=== PATIENT | male | born 1960 | race Caucasian/White ===

== ENCOUNTER 2018-01-30 06:26 | Day surgery (SDC) | payer OTHER, SELFPAY ==
[2018-01-30] VITALS (12 sets, daily range): BP systolic 108–149; BP diastolic 66–90; PULSE 73–93; RESP 12–28; TEMP 35.7–37.2; O2SAT 94–99; BMI 27.2
--- NOTE | 2018-01-30 07:29 | PM.PREOP ---
Pre-operative Note Interval Note Pre-op Check: History & Physical Reviewed by Physician and Exam Performed
--- NOTE | 2018-01-30 07:29 | PM.OP.1 ---
Operative Date/Time/Diagnoses - Date of procedure: 01/30/18 Time of procedure: 09:29 Pre-op diagnosis: Lumbar stenosis with radiculopathy Post-op diagnosis: same Procedure & Clinicians Procedure: L3-4 laminectomy L5-S1 laminectomy Use of microscope Placement of epidural catheter Same procedure as scheduled: Yes Indications: [age] year old male with intractable pain from stenosis. They had failed conservative management and requested operative intervention. Risks and benefits of surgery were discussed and appropriate consents were obtained. Surgeon: Denis Bynum Railway Shunter: Kenyatta Link Anesthesia Type: General Operative Notes Findings: none Closure Type: primary Specimen(s): none sent Estimated Blood Loss (mL): 20 Procedure in detail: Patient was brought to the operating room and intubated on the table. They were rolled over on the well-padded prone position on the Bob table. A time-out was performed. Preoperative antibiotics were given. The back was prepped and draped in standard sterile fashion. Using fluoroscopy for localization, a 7 cm incision was made in the midline. We used Bovie to dissect through the lumbodorsal fascia and then subperiosteally dissect the paraspinal muscles off the right side. A marker was placed and x-ray was taken to confirm positioning. We then brought in the microscope. A right-sided laminectomy was performed at L3-4 and L5-S1, skipping over the L4-5 level. We carefully depressed the dura and reached across the midline to decompress the opposite side. The neural foramen were cleared out, extensively along the right-sided L5-S1. At the end, we could reach with the ball probe cephalad and caudally across the midline and to the foramen and everything was opened. The wound was irrigated. An epidural catheter was prepared with 8 mL of 0.25% Marcaine and 100 mcg of fentanyl. The dura was carefully depressed and the catheter was advanced 6 cm cephalad underneath remaining lamina without resistance. The fascia was then closed in layers. The epidural catheter was injected without complications. Vancomycin powder was placed in the wound. The superficial and the skin were closed. Sterile dressing was placed. Patient was rolled over extubated brought to recovery room with no complications. Condition: stable Disposition: PACU Plan for aftercare: Overnight admission. Probable discharge tomorrow
--- NOTE | 2018-01-30 07:33 | P.OP_ITS ---
Operative Date/Time/Diagnoses - Date of procedure: 01/30/18 Time of procedure: 09:29 Pre-op diagnosis: Lumbar stenosis with radiculopathy Post-op diagnosis: same Procedure & Clinicians Procedure: L3-4 laminectomy L5-S1 laminectomy Use of microscope Placement of epidural catheter Same procedure as scheduled: Yes Indications: [age] year old male with intractable pain from stenosis. They had failed conservative management and requested operative intervention. Risks and benefits of surgery were discussed and appropriate consents were obtained. Surgeon: Denis Bynum Network Security Administrator: Kenyatta Link Anesthesia Type: General Operative Notes Findings: none Closure Type: primary Specimen(s): none sent Estimated Blood Loss (mL): 20 Procedure in detail: Patient was brought to the operating room and intubated on the table. They were rolled over on the well-padded prone position on the Bob table. A time-out was performed. Preoperative antibiotics were given. The back was prepped and draped in standard sterile fashion. Using fluoroscopy for localization, a 7 cm incision was made in the midline. We used Bovie to dissect through the lumbodorsal fascia and then subperiosteally dissect the paraspinal muscles off the right side. A marker was placed and x- ray was taken to confirm positioning. We then brought in the microscope. A right-sided laminectomy was performed at L3 -4 and L5-S1, skipping over the L4-5 level. We carefully depressed the dura and reached across the midline to decompress the opposite side. The neural foramen were cleared out, extensively along the right-sided L5-S1. At the end, we could reach with the ball probe cephalad and caudally across the midline and to the foramen and everything was opened. The wound was irrigated. An epidural catheter was prepared with 8 mL of 0.25% Marcaine and 100 mcg of fentanyl. The dura was carefully depressed and the catheter was advanced 6 cm cephalad underneath remaining lamina without resistance. The fascia was then closed in layers. The epidural catheter was injected without complications. Vancomycin powder was placed in the wound. The superficial and the skin were closed. Sterile dressing was placed. Patient was rolled over extubated brought to recovery room with no complications. Condition: stable Disposition: PACU Plan for aftercare: Overnight admission. Probable discharge tomorrow
[2018-01-30] MEDS: LACTATED RINGERS 1,000 ML 42 ML IV (07:45)
[2018-01-30] MEDS: CEFAZOLIN 2 GM/100 ML FROZ.PIGGY IV ×2 (07:48→16:00)
[2018-01-30] MEDS: THROMBIN (BOVINE) 5,000 UNIT VIAL 5000 UNIT TOP (08:18)
[2018-01-30] MEDS: VANCOMYCIN 1,000 MG VIAL 1000 MG TOP (08:19)
[2018-01-30] MEDS: BUPIVACAINE 0.25% (PF) 8 ML, fentaNYL 100 MCG INJ (08:20)
[2018-01-30] MEDS: SODIUM CHLORIDE 0.9% 1,000 ML, GENTAMICIN 80 MG IRR (08:21)
--- NOTE | 2018-01-30 08:28 | SUR.OPER ---
Prone on spine table, head in foam head support, padded chest and pelvic supports, gel pad at knees, lower legs supported by pillows; nipples, genitalia and toes free of pressure, arms secured on foam padded arm boards at <90 degrees abduction. Tape over blanket at thigh secured to table.
[2018-01-30] MEDS: LACTATED RINGERS 1,000 ML 125 ML IV ×2 (10:47→19:38)
--- NOTE | 2018-01-30 15:03 | PC.NURSE ---
Pt received mid morning from surgery. Denies need for pain meds at this time. MOstly sleeping. Vitals signs stable.
--- NOTE | 2018-01-30 16:10 | PT.IIE ---
Current Diagnoses Spinal stenosis, lumbar region with neurogenic claudication (01/30/18) Strain of muscle, fascia and tendon of lower back, subsequent encounter (01/30/18) Surgery Performed Operation Date: 01/30/18 07:45 Actual Procedures p Laminectomy L3-4, L5-S1 - Denis Bynum MD Surgical History (Last Updated 12/19/17 @ 08:45 by Susan Gomez, RN) S/P epidural steroid injection (Acute) S/P rotator cuff repair (Acute) Medical History (Last Updated 12/19/17 @ 08:45 by Susan Gomez, RN) Ankle fracture (Acute) Diabetes mellitus (Acute) Elevated cholesterol (Acute) Hypertension (Acute) Left shoulder pain (Acute) Lumbar stenosis with neurogenic claudication (Acute) Peptic ulcer (Acute) Strain of lumbar region (Acute) Physical Therapy Inpatient Evaluation/Re-Eval M1 PT/OT-IP Prior Functional Status Start: 01/30/18 17:41 Freq: NEEDED Status: Active Protocol: Document 01/30/18 16:10 AB (Rec: 01/30/18 17:49 AB [id number]) Medical Review Prior Functional Status Medical History Reviewed Yes Mobility and Gait pt stated that he is indpeendent with all mobilities and ambulation without AD Prior Functional Level (Other details) pt lived in [place] before but moved to [place]. just came back to [facility] for his back surgery and will be staying at his sister-in- law house after d/c from the hospital. Social History Household Members spouse Living Arrangements House Number of Floors (Floors) One Floor Number of Stairs To Enter/Railing? 1 step to enter Home Environment Standard Height Toilet Walk in Shower Home Equipment Grab Bars In Shower Employment Status Retired M2 PT-IP Current Condition Start: 01/30/18 17:41 Freq: NEEDED Status: Active Protocol: Document 01/30/18 16:10 AB (Rec: 01/30/18 17:49 AB [id number]) Physical Therapy Current Condition Current Condition Evaluation Date 01/30/18 Treatment Diagnosis l3-4, L5S1 laminectomy Onset Date 01/30/18 Precautions Lumbar Precautions Log Roll No Twisting Limit Bending Lifting Restriction of 10 lbs Gait Belt above Incisional Area M3 PT-IP Subjective Start: 01/30/18 17:41 Freq: NEEDED Status: Active Protocol: Document 01/30/18 16:10 AB (Rec: 01/30/18 17:49 AB [id number]) Subjective Physical Therapy Visit Type Type Initial Evaluation Visit Start Time 16:10 Visit Stop Time 16:40 Total Visit Minutes 30 Number of FITTER PLACER Visits 0 Physical Therapy Visit Comments Patient Comments pt agreeable to get up Patient/Caregiver Goals to go home tomorrow Therapy Pain Assessment Pain When Pain Assessed At Rest Pain Present Pain Present Pain Reported Location Back Intensity 4 Scale Used Numeric (1 - 10) Pain Management Techniques Apply Cold Re-positioning M4 PT-IP Mobility and Gait Start: 01/30/18 17:41 Freq: NEEDED Status: Active Protocol: Document 01/30/18 16:10 AB (Rec: 01/30/18 17:49 AB [id number]) PT-Bed Mobility Assessment Rolling Level of Assist Standby Assistance Supine to Sit Supine to Sit Standby Assistance Sit to Supine Sit to Supine Standby Assistance Scooting Scooting to Edge of Bed Standby Assistance PT-Transfer Assessment Sit to and From Stand Sit to and from Stand Standby Assistance Equipment Transfer Assistive Device Gait Belt Orthotic/Prosthetic Devices or Brace: No Transfers Transfer Destination Chair Transfer Technique Stand Step Pivot Transfer Ability Level of Assist Standby Assistance Gait Assessment Gait Gait Assistance Required: Standby Assistance Distance (Feet) (feet) 25 Able to Maintain Weight Bearing Status Yes During Gait Assistive Devices Assistive Device Gait Belt Comments Gait Comments assessed ambulation using FWW and pt completed with SBA. assessed pt's ambulation without AD and pt was able to complete 20 ft SBA. PT-Balance Assessment Sitting Balance and Reactions Static Sitting Balance Ability Good Dynamic Sitting Balance Ability Good Standing Balance and Reactions Static Standing Balance Ability Good Dynamic Standing Balance Ability Fair M5 PT-IP Objective Assessments Start: 01/30/18 17:41 Freq: NEEDED Status: Active Protocol: Document 01/30/18 16:10 AB (Rec: 01/30/18 17:49 AB [id number]) Orientation Orientation/Cognition Level of Alertness Alert Orientation Name Age Birthday Month Date Year Day of Week Place Situation Safety Awareness Understands Safety Issues Gross Range of Motion Lower Extremity ROM Assessment Within Functional Limits Strength Lower Extremity Strength Assessment Within Functional Limits Sensation Assessment Sensation Sensation Description Numbness Comments Sensation Comments c/o numbness on R hip but stated that it is lesser than prior to surgery M6 PT-IP Treatment Start: 01/30/18 17:41 Freq: NEEDED Status: Active Protocol: Document 01/30/18 16:10 AB (Rec: 01/30/18 17:49 AB [id number]) Physical Therapy Treatment Education Education Provided Precautions Weight Bearing Status Post-Op Packet Safety M7 PT-IP Assessment and Plan Start: 01/30/18 17:41 Freq: NEEDED Status: Active Protocol: Document 01/30/18 16:10 AB (Rec: 01/30/18 17:49 AB [id number]) PT Summary Assessment and Plan Potential Rehabilitation Potential Good Status of Condition at Evaluation Stable Summary Impairments Pain ROM Strength Balance Sensation Bed Mobility Transfers Gait Activity Tolerance Assessment Summary pt is doing well with mobility and will have spouse to assist him at home. stair climbing will be conducted prior to d/c. Goals Bed Mobility Goal Independent Transfer Goal Independent Gait Goal Independent Gait Distance 200 Other Goals up/down 1 step without AD Days to Meet Goals 2 Frequency of Treatment Frequency Of Treatment Twice a Day Treatment Plan Physical Therapy Treatment Plan Bed Mobility Training Transfer Training Gait Training Therapeutic Exercise Balance Retraining Post Op Education Discharge Planning Hot or Cold Pack Neuromuscular Re-ed Coordination Retraining Manual Therapy Other Recommendations and Next Treatment ambulation, stair climbing Focus Recommendations To Nursing Amount of Assist Needed Standby Assistance Discharge Recommendations PT Discharge Recommendations Home with Assistance
[2018-01-30] MEDS: HYDROCODONE/ACET 5/325 TABLET 1 TAB PO (19:33)
[2018-01-30] MEDS: DOCUSATE 100 MG CAPSULE PO (19:39)
[2018-01-30] MEDS: GABAPENTIN 300 MG CAPSULE 600 MG PO (19:39)
[2018-01-30] MEDS: METFORMIN HCL 500 MG TABLET PO (19:40)
[2018-01-30] MEDS: glyBURIDE 2.5 MG TABLET 5 MG PO (19:40)
[2018-01-30] MEDS: SENNOSIDES 8.6 MG TABLET 17.2 MG PO (19:40)
[2018-01-30] MEDS: INSULIN GLARGINE 100 UNIT/ML 3ML PEN 15 UNIT SUBCUT (20:59)
[2018-01-31] MEDS: CEFAZOLIN 2 GM/100 ML FROZ.PIGGY IV (00:09)
[2018-01-31 00:46] VITALS: BP 136/78; PULSE 98; RESP 16; TEMP 37.3; O2SAT 95
[2018-01-31] MEDS: HYDROCODONE/ACET 5/325 TABLET 1 TAB PO (05:17)
[2018-01-31 06:15] VITALS: BP 133/78; PULSE 98; RESP 16; TEMP 37; O2SAT 95
[2018-01-31 06:20] LABS: BUN Creatinine Ratio 15.7 (6-22); Blood Urea Nitrogen 11 mg/dL (9-20); Calcium 8.7 mg/dL (8.4-10.2); Carbon Dioxide 26 mmol/L (22-32); Chloride 103 mmol/L (98-107); Estimated Glomerular Filt Rate > 60.0 mL/min (>60); Glucose 136 mg/dL (70-100); HEMOLYSIS < 15 (0-50); Sodium 136 mmol/L (137-145)
[2018-01-31 08:00] VITALS: BP 135/71; PULSE 98; RESP 16; TEMP 36.8; O2SAT 96
--- NOTE | 2018-01-31 08:54 | PM.DS.1 ---
History of Present Illness Date Patient Seen: 01/31/18 Time Patient Seen: 08:54 Chief complaint: *OPB*L34 35S1 laminectomies [id number] Narrative: Patient is a 57-year-old male with history of low back pain with radiculopathy down the right leg. He failed conservative measures such as epidural steroid injections and elected for surgical intervention by Dr. Bynum at [facility] Discharge Providers Consults: 01/30/18 10:21 Consult to Occupational Therapy Evaluate & Treat Comment: Physician Instructions: Evaluate and treat Consult to Physical Therapy Evaluate & Treat Comment: Physician Instructions: Evaluate and Treat Discharge provider: Mitzy Reddy PA-C Summary Discharge Diagnosis: Lumbar stenosis with radiculopathy Diabetes mellitus Hospital Course: Patient was admitted and taken operating room where he had a L3-S1 laminectomies by Dr. Bynum. He recovered well and was transferred to the floor for further care. Postop day 1 patient was ambulating well, pain was under control, eating and drinking well and urinating without difficulty. Patient was ready to be discharged home. Patient to be discharged home on Tylenol No. 3 as needed for pain. Status at Discharge Cognitive/behavioral status at discharge: Patient alert orient x3. Functional status at discharge: uses cane/walker Overall status at discharge: patient is progressing back to baseline Time Spent with Patient Less than 30 minutes Exam Vital Signs (past 8 hours): - 01/31/18 06:15 01/31/18 08:00 Temperature 98.6 F 98.2 F Pulse Rate 98 H 98 H Respiratory Rate 16 16 Blood Pressure 133/78 H 135/71 H Pulse Oximetry 95 96 Oxygen Delivery Method Room Air Narrative Exam Narrative: Orthopedic vital signs stable. Patient in bed. Appears comfortable. Back dressing intact with a little serous drainage at the bottom. 5/5 BLE strength. Neurovascular status intact. Alert and orient x3. Objective Labs Result Diagrams: 01/31/18 05:42 01/31/18 05:42 Labs: Laboratory Results - last 24 hr 01/31/18 01/31/18 05:42 05:42 Hgb 14.0 Hct 39.0 L Sodium 136 L Potassium 4.0 Chloride 103 Carbon Dioxide 26 BUN 11 Creatinine 0.70 Estimated GFR > 60.0 BUN/Creatinine Ratio 15.7 Glucose 136 H Calcium 8.7 Discharge Plan Discharge Plan Patient Disposition: Home, Self-Care Discharge comment: Avoid any lifting or bending forward. Discharge Med Rec/Prescriptions Prescriptions: New acetaminophen-codeine 300-30 mg Tablet 1 tab PO Q4-6H PRN (Reason: Moderate Pain) Qty: 60 RF: 0 Continue metformin 500 mg Tablet 500 mg PO BID RF: 0 glyburide 2.5 mg Tablet 5 mg PO BID RF: 0 lisinopril 20 mg Tablet 20 mg PO QAM RF: 0 gabapentin 300 mg Capsule 300 - 600 mg PO BEDTIME RF: 0 multivitamin Capsule 1 cap PO DAILY RF: 0 insulin glargine [Lantus Solostar U-100 Insulin] 100 unit/mL (3 mL) Insulin Pen 15 unit SUB-Q BEDTIME RF: 0 liraglutide [Victoza 2-Alex] 0.6 mg/0.1 mL (18 mg/3 mL) Pen Injector 1.8 mg SUB-Q BEDTIME RF: 0 Discontinued acetaminophen [Tylenol] 325 mg Tablet 325 mg PO PRN PRN (Reason: pain) RF: 0 Follow up/Referrals: Denis Bynum MD [Physician] - (Follow-up on 02/13/2018 at the [facility]. Any issues or concerns contact the office.) Discharge Orders: Discharge (Order); Ordered 01/31/18 Ordered By: Mitzy Reddy Provider Discharge Instructions Diet: Carb-consistent/Diabetic Activity: Activity as tolerated. No heavy lifting or forward bending. Cold/Heat Therapy: Apply ice as needed for inflammation and swelling. Wound Care Report to your healthcare provider any signs of infection, such as:: chills, fever, increased pain and unusual drainage Dressing: Leave dressing intact. May shower. Visit Report/Discharge Packet Instructions: DI for Laminectomy Stand Alone Forms: Surgery Discharge Discharge Data Attending Provider: Denis Bynum Quality VTE Deep Vein Thrombosis/Pulmonary Embolism Present on Admission: No
--- NOTE | 2018-01-31 08:58 | P.DS_ITS ---
History of Present Illness Date Patient Seen: 01/31/18 Time Patient Seen: 08:54 Chief complaint: *OPB*L34 35S1 laminectomies [id number] Narrative: Patient is a 57-year-old male with history of low back pain with radiculopathy down the right leg. He failed conservative measures such as epidural steroid injections and elected for surgical intervention by Dr. Bynum at [facility] Discharge Providers Consults: 01/30/18 10:21 Consult to Occupational Therapy Evaluate & Treat Comment: Physician Instructions: Evaluate and treat Consult to Physical Therapy Evaluate & Treat Comment: Physician Instructions: Evaluate and Treat Discharge provider: Mitzy Reddy PA-C Summary Discharge Diagnosis: Lumbar stenosis with radiculopathy Diabetes mellitus Hospital Course: Patient was admitted and taken operating room where he had a L3 -S1 laminectomies by Dr. Bynum. He recovered well and was transferred to the floor for further care. Postop day 1 patient was ambulating well, pain was under control, eating and drinking well and urinating without difficulty. Patient was ready to be discharged home. Patient to be discharged home on Tylenol No. 3 as needed for pain. Status at Discharge Cognitive/behavioral status at discharge: Patient alert orient x3. Functional status at discharge: uses cane/walker Overall status at discharge: patient is progressing back to baseline Time Spent with Patient Less than 30 minutes Exam Vital Signs (past 8 hours): - 01/31/18 06:15 01/31/18 08:00 Temperature 98.6 F 98.2 F Pulse Rate 98 H 98 H Respiratory Rate 16 16 Blood Pressure 133/78 H 135/71 H Pulse Oximetry 95 96 Oxygen Delivery Method Room Air Narrative Exam Narrative: Orthopedic vital signs stable. Patient in bed. Appears comfortable. Back dressing intact with a little serous drainage at the bottom. 5/5 BLE strength. Neurovascular status intact. Alert and orient x3. Objective Labs Result Diagrams: 01/31/18 05:42 01/31/18 05:42 Labs: Laboratory Results - last 24 hr 01/31/18 01/31/18 05:42 05:42 Hgb 14.0 Hct 39.0 L Sodium 136 L Potassium 4.0 Chloride 103 Carbon Dioxide 26 BUN 11 Creatinine 0.70 Estimated GFR > 60.0 BUN/Creatinine Ratio 15.7 Glucose 136 H Calcium 8.7 Discharge Plan Discharge Plan Patient Disposition: Home, Self-Care Discharge comment: Avoid any lifting or bending forward. Discharge Med Rec/Prescriptions Prescriptions: New acetaminophen-codeine 300-30 mg Tablet 1 tab PO Q4-6H PRN (Reason: Moderate Pain) Qty: 60 RF: 0 Continue metformin 500 mg Tablet 500 mg PO BID RF: 0 glyburide 2.5 mg Tablet 5 mg PO BID RF: 0 lisinopril 20 mg Tablet 20 mg PO QAM RF: 0 gabapentin 300 mg Capsule 300 - 600 mg PO BEDTIME RF: 0 multivitamin Capsule 1 cap PO DAILY RF: 0 insulin glargine [Lantus Solostar U-100 Insulin] 100 unit/mL (3 mL) Insulin Pen 15 unit SUB-Q BEDTIME RF: 0 liraglutide [Victoza 2-Alex] 0.6 mg/0.1 mL (18 mg/3 mL) Pen Injector 1.8 mg SUB-Q BEDTIME RF: 0 Discontinued acetaminophen [Tylenol] 325 mg Tablet 325 mg PO PRN PRN (Reason: pain) RF: 0 Follow up/Referrals: Denis Bynum MD [Physician] - (Follow-up on 02/13/2018 at the [facility]. Any issues or concerns contact the office.) Discharge Orders: Discharge (Order); Ordered 01/31/18 Ordered By: Mitzy Reddy Provider Discharge Instructions Diet: Carb-consistent/Diabetic Activity: Activity as tolerated. No heavy lifting or forward bending. Cold/Heat Therapy: Apply ice as needed for inflammation and swelling. Wound Care Report to your healthcare provider any signs of infection, such as:: chills, fever, increased pain and unusual drainage Dressing: Leave dressing intact. May shower. Visit Report/Discharge Packet Instructions: DI for Laminectomy Stand Alone Forms: Surgery Discharge Discharge Data Attending Provider: Denis Bynum Quality VTE Deep Vein Thrombosis/Pulmonary Embolism Present on Admission: No
[2018-01-31] MEDS: glyBURIDE 2.5 MG TABLET 5 MG PO (09:00)
[2018-01-31] MEDS: METFORMIN HCL 500 MG TABLET PO (09:01)
[2018-01-31] MEDS: LISINOPRIL 20 MG TABLET PO (09:01)
[2018-01-31] MEDS: DOCUSATE 100 MG CAPSULE PO (09:01)
[2018-01-31] MEDS: MULTIVITAMIN 1 TABLET 1 TAB PO (09:01)
--- NOTE | 2018-01-31 09:55 | OT.IP.EVAL ---
Current Diagnoses Spinal stenosis, lumbar region with neurogenic claudication (01/30/18) Strain of muscle, fascia and tendon of lower back, subsequent encounter (01/30/18) Surgery Performed Operation Date: 01/30/18 07:45 Actual Procedures p Laminectomy L3-4, L5-S1 - Denis Bynum MD Past Medical History (Last Updated 12/19/17 @ 08:45 by Susan Gomez, RN) Ankle fracture (Acute) Diabetes mellitus (Acute) Elevated cholesterol (Acute) Hypertension (Acute) Left shoulder pain (Acute) Lumbar stenosis with neurogenic claudication (Acute) Peptic ulcer (Acute) Strain of lumbar region (Acute) Surgical History (Last Updated 12/19/17 @ 08:45 by Susan Gomez, BENITA) S/P epidural steroid injection (Acute) S/P rotator cuff repair (Acute) Occupational Therapy Inpatient Evaluation/Re-Eval M1 PT/OT-IP Prior Functional Status Start: 01/30/18 17:41 Freq: NEEDED Status: Active Protocol: Document 01/30/18 16:10 AB (Rec: 01/30/18 17:49 AB [id number]) Medical Review Prior Functional Status Medical History Reviewed Yes Mobility and Gait pt stated that he is indpendent with all mobilities and ambulation without AD Prior Functional Level (Other details) pt lived in [place] before but moved to [place]. just came back to [facility] for his back surgery and will be staying at his sister-in- law house after d/c from the hospital. Social History Household Members spouse Living Arrangements House Number of Floors (Floors) One Floor Number of Stairs To Enter/Railing? 1 step to enter Home Environment Standard Height Toilet Walk in Shower Home Equipment Grab Bars In Shower Employment Status Retired M3 OT- IP Subjective and Pain Start: 01/31/18 09:53 Freq: Status: Active Protocol: Document 01/31/18 09:54 [facility] (Rec: 01/31/18 09:55 [facility] [id number]) OT- Subjective Occupational Therapy Visit Type Type Administrative Note Notes Pt being discharge today as doing well, able to quickly go over OT needs and pt already able to do all with good safety per pt and has to assist at home. Therefore no OT eval needed.
--- NOTE | 2018-01-31 11:37 | PC.NURSE ---
discharge alerted by PA that pt was ready for d/c and wanted to go home. PIV removed without issue. D/c instructions provided to pt and his . dressing changed per order to coversite. will watch as pt is allergic to latex and remove if necessary. they are aware that if dressing needs to be changed to medipore tape that pt will not be able to shower. Pt left hosptial with and AUCTION BLOCK CLERK escort to car. Pt left with Rx for T3 and f/u apt with MD on 02/13. Aware to call office with any additional questions or concerns.
--- NOTE | 2018-01-31 16:56 | PT.IPTN ---
Current Diagnoses Spinal stenosis, lumbar region with neurogenic claudication (01/30/18) Strain of muscle, fascia and tendon of lower back, subsequent encounter (01/30/18) Surgery Performed Operation Date: 01/30/18 07:45 Actual Procedures p Laminectomy L3-4, L5-S1 - Denis Bynum MD Physical Therapy Treatment Note M2 PT-IP Current Condition Start: 01/30/18 17:41 Freq: NEEDED Status: Active Protocol: Document 01/31/18 09:45 TMS (Rec: 01/31/18 16:56 TMS [email or web address]) Physical Therapy Current Condition Current Condition Evaluation Date 01/30/18 Treatment Diagnosis l3-4, L5S1 laminectomy Onset Date 01/30/18 Precautions Lumbar Precautions Log Roll No Twisting Limit Bending Lifting Restriction of 10 lbs Gait Belt above Incisional Area M3 PT-IP Subjective Start: 01/30/18 17:41 Freq: NEEDED Status: Active Protocol: Document 01/31/18 09:45 TMS (Rec: 01/31/18 16:56 TMS [email or web address]) Subjective Physical Therapy Visit Type Type Treatment Note Visit Start Time 09:30 Visit Stop Time 09:45 Number of NURSE HEALTHCARE MANAGER Visits 1 Therapy Pain Assessment Pain When Pain Assessed At Rest Pain Present Pain Present Pain Reported Location Back Intensity 2 Scale Used Numeric (1 - 10) Pain Management Techniques Re-positioning M4 PT-IP Mobility and Gait Start: 01/30/18 17:41 Freq: NEEDED Status: Active Protocol: Document 01/31/18 09:45 TMS (Rec: 01/31/18 16:56 TMS [email or web address]) PT-Transfer Assessment Sit to and From Stand Sit to and from Stand Standby Assistance Equipment Transfer Assistive Device Gait Belt Orthotic/Prosthetic Devices or Brace: No Transfer Ability Level of Assist Standby Assistance Gait Assessment Gait Gait Assistance Required: Standby Assistance Distance (Feet) (feet) 200 Able to Maintain Weight Bearing Status Yes During Gait Assistive Devices Assistive Device Gait Belt Straight Cane Orthotic/Prosthetic Devices or Brace: No Comments Gait Comments Good stability using SPC or no assistive device. Stair Climbing Assessment Evaluation Level of Assist On Stairs Contact Guard Assistance Devices Stair Climbing Assistive Devices Left Railing Right Railing Technique/Endurance Stair Climbing Direction Ascend and Descend Stair Climbing Technique Step to Step Number of Steps Climbed 3 Query Text: Stair Climbing Set # Repetitions (reps) 1 Comments Stair Climbing Comments Pt. did well on stairs, good stability. Has cane at sister in law's (where he'll be staying until goes home to [place]) . M5 PT-IP Objective Assessments Start: 01/30/18 17:41 Freq: NEEDED Status: Discharge Protocol: Document 01/30/18 16:10 AB (Rec: 01/30/18 17:49 AB [email or web address]) Orientation Orientation/Cognition Level of Alertness Alert Orientation Name Age Birthday Month Date Year Day of Week Place Situation Safety Awareness Understands Safety Issues Gross Range of Motion Lower Extremity ROM Assessment Within Functional Limits Strength Lower Extremity Strength Assessment Within Functional Limits Sensation Assessment Sensation Sensation Description Numbness Comments Sensation Comments c/o numbness on R hip but stated that it is lesser than prior to surgery M6 PT-IP Treatment Start: 01/30/18 17:41 Freq: NEEDED Status: Discharge Protocol: Document 01/30/18 16:10 AB (Rec: 01/30/18 17:49 AB [id number]) Physical Therapy Treatment Education Education Provided Precautions Weight Bearing Status Post-Op Packet Safety M7 PT-IP Assessment and Plan Start: 01/30/18 17:41 Freq: NEEDED Status: Active Protocol: Document 01/31/18 09:45 TMS (Rec: 01/31/18 16:56 TMS [email or web address]) PT Summary Assessment and Plan Summary Assessment Summary Pt. safe to DC home with spouse, good pain tolerance, good endurance and stability. Recommendations To Nursing Amount of Assist Needed Standby Assistance Discharge Recommendations PT Discharge Recommendations Home with Assistance
== END 2018-01-31 09:55 | disposition home or self-care (01) ==
LOC: OR 07:54 → AC 08:40
PROVIDERS: Visit Provider Orthopaedic Surgery
PROC: (CPT 63047; principal; 2018-01-30 07:45)
DX: M48.062 Spinal stenosis, lumbar region with neurogenic claudication (principal); S39.012A Strain of muscle, fascia and tendon of lower back, initial encounter; E11.9 Type 2 diabetes mellitus without complications; I10 Essential (primary) hypertension; Z79.4 Long term (current) use of insulin; E78.00 Pure hypercholesterolemia, unspecified; Z87.891 Personal history of nicotine dependence
CPT/HCPCS: 63047; 63048; 36415; 80048; 85014; 85018; 97116; 97161; J0690; J2250; J2405; J2704; J3010